=== PATIENT | male | born 1970 | race Caucasian/White ===

== ENCOUNTER 2020-03-25 08:34 | Emergency (ER) | payer OTHER ==
[~2020-03-25] VITALS: Ht 182.9 cm; Wt 71.2 kg
[~2020-03-25 08:34] MED LIST: AMOXICILLIN 50500 M1 PO; AMOXICILLIN500 M1 PO; ANUSOL1 EACH RC; AUGMENTIN 875875 MG PO; CIPRO HC OTIC S10 ML OTIC; CORTISPORIN EAR10 ML OT; CORTISPORIN OTI10 ML OTIC; KEFLEX500 MG PO; NOHOMEMEDICATIONS; NORCO 5-325 TA1 EACH PO; PENICILLIN VK500 MG PO
[2020-03-25 08:37] VITALS: BP 158/108
[2020-03-25] MEDS ORDERED: AUGMENTIN 875-1 EACH PO (09:00)
== END 2020-03-25 09:12 | disposition home or self-care (01) ==
LOC: ER 08:34
DX: S61.452A Open bite of left hand, initial encounter (principal); W54.0XXA Bitten by dog, initial encounter; Y93.89 Activity, other specified; Y92.89 Other specified places as the place of occurrence of the external cause; Y99.8 Other external cause status

== ENCOUNTER 2020-08-24 02:56 | Emergency (ER) | payer OTHER ==
[~2020-08-24] VITALS: Ht 223.5 cm; Wt 73.9 kg
[~2020-08-24 02:56] MED LIST changes: +AUGMENTIN 875-1 EACH PO
[2020-08-24] MEDS ORDERED: AUGMENTIN 875-1 EACH PO (05:05)
[2020-08-24 05:24] VITALS: BP 149/94
== END 2020-08-24 05:24 | disposition home or self-care (01) ==
LOC: ER 02:56
DX: S81.851A Open bite, right lower leg, initial encounter (principal); W54.0XXA Bitten by dog, initial encounter; Y93.89 Activity, other specified; Y92.89 Other specified places as the place of occurrence of the external cause; Y99.8 Other external cause status

== ENCOUNTER 2021-02-09 19:07 | Emergency (ER) | payer OTHER ==
[~2021-02-09] VITALS: Ht 182.9 cm; Wt 71.2 kg
[2021-02-09] MEDS ORDERED: AUGMENTIN 875-1 EACH PO (21:48)
[2021-02-09 22:05] VITALS: BP 154/70
== END 2021-02-09 22:06 | disposition home or self-care (01) ==
LOC: ER 19:07
DX: S81.051A Open bite, right knee, initial encounter (principal); S81.852A Open bite, left lower leg, initial encounter; S61.253A Open bite of left middle finger without damage to nail, initial encounter; F17.210 Nicotine dependence, cigarettes, uncomplicated; W54.0XXA Bitten by dog, initial encounter; Y93.89 Activity, other specified; Y92.009 Unspecified place in unspecified non-institutional (private) residence as the place of occurrence of the external cause; Y99.8 Other external cause status